=== PATIENT | male | born 1995 | race Caucasian/White ===

== ENCOUNTER 2020-11-11 12:10 | Emergency (ER) | payer SELFPAY ==
--- NOTE | 2020-11-11 14:32 | EDM.PDOC ---
ED HPI GENERAL MEDICAL PROBLEM - General Chief Complaint: Lower Extremity Injury/Pain Stated Complaint: RT CALF PAIN Time Seen by Provider: 11/11/20 12:50 Source of Information: Reports: Patient History Limitations: Reports: No Limitations - History of Present Illness INITIAL COMMENTS - FREE TEXT/NARRATIVE: Patient presented to the Ed because of rt calf pain. He travelleb by bus from [place] to [facility] for 3 days. There is no chest pain or dyspnea. right leg Pain Score (Numeric/FACES): 5 - Related Data Allergies Allergy/AdvReac Type Severity Reaction Status Date / Time Unable to Assess Allergy Unverified 11/11/20 12:53 Home Meds: Home Meds Cyclobenzaprine [Flexeril] 10 mg PO Q8H PRN #15 tab 11/11/20 [Rx] Ibuprofen 800 mg PO Q8H #30 tablet 11/11/20 [Rx] Review of Systems - Review of Systems Review Of Systems: See Below Constitutional: Reports: No Symptoms Ears: Reports: No Symptoms Nose: Reports: No Symptoms Mouth/Throat: Reports: No Symptoms Respiratory: Reports: No Symptoms Cardiovascular: Reports: No Symptoms GI/Abdominal: Reports: No Symptoms Genitourinary: Reports: No Symptoms Musculoskeletal: Reports: Leg Pain Skin: Reports: No Symptoms Neurological: Reports: No Symptoms Psychiatric: Reports: No Symptoms ED EXAM, GENERAL - Physical Exam Exam: See Below Exam Limited By: No Limitations General Appearance: Alert, No Apparent Distress Eye Exam: Bilateral Eye: PERRL Ears: Normal External Exam, Normal Canal Nose: Normal Inspection, Normal Mucosa Throat/Mouth: Normal Inspection, Normal Lips Head: Atraumatic, Normocephalic Neck: Normal Inspection, Supple, Non-Tender, Full Range of Motion Respiratory/Chest: No Respiratory Distress, Lungs Clear, Normal Breath Sounds Cardiovascular: Normal Peripheral Pulses, Regular Rate, Rhythm, No Edema, No Gallop GI/Abdominal: Normal Bowel Sounds, Soft, Non-Tender, No Organomegaly Back Exam: Normal Inspection, Full Range of Motion Extremities: Normal Inspection, Normal Range of Motion, Non-Tender Neurological: Alert, Oriented, CN II-XII Intact, Normal Cognition Course - Vital Signs Text/Narrative:: [id number] RLE US-see result Last Recorded V/S: Last Vital Signs Temp 36.7 C 11/11/20 15:00 Pulse 82 11/11/20 15:00 Resp 15 11/11/20 15:00 BP 133/71 11/11/20 15:00 Pulse Ox 100 11/11/20 15:00 - Orders/Labs/Meds Labs: Laboratory Tests 11/11/20 Range/Units 13:20 D-Dimer, Quantitative 1.20 H (0.0-0.59) mg/LFEU Departure - Departure Time of Disposition: 15:00 Disposition: Home, Self-Care 01 Condition: Good Clinical Impression: Muscle pain, Leg pain, right - Discharge Information Prescriptions: Cyclobenzaprine [Flexeril] 10 mg PO Q8H PRN #15 tab PRN Reason: Spasms Ibuprofen 800 mg PO Q8H #30 tablet Instructions: Musculoskeletal Pain Referrals: PCP,Not In Area [Primary Care Provider] - Forms: ED Department Discharge Additional Instructions: Please read discharge instructions on mescle pain Apply ice or heat whichever makes the pain feel better Take ibuprofen 800 mg, tylenol 1000 mg, flexeriil 10 mg every 8 hours as needed for pain and spasm Follow up as needed Sepsis Event Note (ED) - Evaluation Sepsis Screening Result: No Definite Risk
--- NOTE | 2020-11-11 16:16 | US ---
DUPLEX ULTRASOUND RIGHT LOWER EXTREMITY VEINS INDICATION: Right leg swelling, question DVT. DUPLEX ULTRASOUND, LOWER EXTREMITY VEINS: Utilizing 2-D real time, duplex Doppler spectral analysis and color flow imaging, examination of the lower extremity veins, including the common femoral vein, proximal greater saphenous vein, proximal deep femoral vein, proximal femoral vein, mid femoral vein, distal femoral vein, popliteal vein, posterior tibial vein, anterior tibial vein, and peroneal vein, revealed no evidence of deep venous thrombosis or obstruction. Compression views showed no abnormal lack of compression to suggest thrombosis. No evidence of incompetence of the valves was identified. IMPRESSION: Duplex ultrasound, lower extremity veins, shows no evidence of deep venous thrombosis or incompetence. MTDD
== END 2020-11-11 15:00 | disposition home or self-care (01) ==
LOC: FB.ED 12:10
DX: M79.661 Pain in right lower leg (principal)
CPT/HCPCS: 36415; 85379; 93971-RT; 99283; 99284-25

== ENCOUNTER 2021-01-23 00:01 | Emergency (ER) | payer BC, MEDICAID ==
--- NOTE | 2021-01-23 11:45 | ER ---
DATE SEEN: 01/23/2021 CHIEF COMPLAINT: Upper respiratory symptoms. HISTORY OF PRESENT ILLNESS: This is a 25-year-old male with a week history of cough, runny nose, vomiting, and diarrhea. No fever. Mild chest pain on the right side. ALLERGIES: No known allergies. MEDICATIONS: Reviewed. PHYSICAL EXAMINATION: GENERAL: Not in distress. VITAL SIGNS: Afebrile. ENT: Normal. CHEST: Clear. CARDIOVASCULAR: Normal. MENTAL STATUS: Alert. IMPRESSION: 1. Upper respiratory infection. 2. Diarrhea. TREATMENT: Supportive therapy and reassurance. /[id number] JESSY/THANH
== END 2021-01-23 01:45 | disposition home or self-care (01) ==
LOC: FB.ED 00:01
DX: J06.9 Acute upper respiratory infection, unspecified (principal); R19.7 Diarrhea, unspecified; Z20.822 Contact with and (suspected) exposure to COVID-19
CPT/HCPCS: 99284; U0002

== ENCOUNTER 2021-02-01 19:38 | Emergency (ER) | payer MEDICAID ==
--- NOTE | 2021-02-01 20:03 | EDM.PDOC ---
ED HPI GENERAL MEDICAL PROBLEM - General Chief Complaint: Gastrointestinal Problem Stated Complaint: HEMROIDS Time Seen by Provider: 02/01/21 20:01 Source of Information: Reports: Patient History Limitations: Reports: No Limitations - History of Present Illness INITIAL COMMENTS - FREE TEXT/NARRATIVE: Fer complains of BRBPR. This happened once tonight. Accompanied by some vomiti ng.No pain - Related Data Allergies Allergy/AdvReac Type Severity Reaction Status Date / Time Unable to Assess Allergy Unverified 11/11/20 12:53 Home Meds: Home Meds Ibuprofen 800 mg PO Q8H #30 tablet 11/11/20 [Rx] Past Medical History HEENT History: Reports: Allergic Rhinitis, Impaired Vision Respiratory History: Reports: Asthma, Bronchitis, Recurrent Musculoskeletal History: Reports: Fracture, Other (See Below) Other Musculoskeletal History: Right ankle fracture surgery. Psychiatric History: Reports: Anxiety, Depression - Past Surgical History GI Surgical History: Reports: Cholecystectomy Social & Family History - Family History Family Medical History: No Pertinent Family History - Tobacco Use Tobacco Use Status *Q: Unknown Ever Used Tobacco - Caffeine Use Caffeine Use: Reports: Coffee, Soda - Recreational Drug Use Recreational Drug Use: No ED ROS GENERAL - Review of Systems Review Of Systems: Comprehensive ROS is negative, except as noted in HPI. ED EXAM, GI/ABD - Physical Exam Exam: See Below Exam Limited By: No Limitations General Appearance: Alert Rectal (Males) Exam: Normal Exam Course - Vital Signs Last Recorded V/S: Last Vital Signs Temp 98.0 F 02/01/21 19:52 Pulse 88 02/01/21 19:52 Resp 18 02/01/21 19:52 BP 122/48 L 02/01/21 19:52 Pulse Ox 100 02/01/21 19:52 Departure - Departure Time of Disposition: 01:37 Disposition: Home, Self-Care 01 Condition: Good Clinical Impression: BRBPR (bright red blood per rectum) - Discharge Information Instructions: Hemorrhoids, [id number] Referrals: PCP,None [Primary Care Provider] - Forms: ED Department Discharge Additional Instructions: Establish a primary care provider. Follow up on Wednesday or Wednesday a clinic. Sepsis Event Note (ED) - Evaluation Sepsis Screening Result: No Definite Risk - Focused Exam Vital Signs: Vital Signs Temp Pulse Resp BP Pulse Ox 02/01/21 19:52 98.0 F 88 18 122/48 L 100 - Problem List & Annotations (1) BRBPR (bright red blood per rectum) SNOMED Code(s): 66362009 Code(s): K62.5 - HEMORRHAGE OF ANUS AND RECTUM Status: Acute - Problem List Review Problem List Initiated/Reviewed/Updated: Yes - Assessment/Plan Plan: Reassurance. Follow up with PCP
== END 2021-02-01 20:14 | disposition home or self-care (01) ==
LOC: FB.ED 19:38
DX: K62.5 Hemorrhage of anus and rectum (principal); Z90.49 Acquired absence of other specified parts of digestive tract
CPT/HCPCS: 99283

== ENCOUNTER 2021-02-14 13:40 | Emergency (ER) | payer MEDICAID ==
--- NOTE | 2021-02-14 15:07 | EDM.PDOC ---
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, that he saw a neurologist in [place] for nerve pain and was given a med that made him tired, no meds now has pain that radiates from R wrist on volar aspect to elbow - Related Data Allergies Allergy/AdvReac Type Severity Reaction Status Date / Time No Known Allergies Allergy Verified 02/14/21 14:43 Home Meds: Home Meds Ibuprofen 800 mg PO Q8H #30 tablet 11/11/20 [Rx] Past Medical History HEENT History: Reports: Allergic Rhinitis, Impaired Vision Respiratory History: Reports: Asthma, Bronchitis, Recurrent Musculoskeletal History: Reports: Fracture, Other (See Below) Other Musculoskeletal History: Right ankle fracture surgery. Psychiatric History: Reports: Anxiety, Depression - Past Surgical History GI Surgical History: Reports: Cholecystectomy Social & Family History - Family History Family Medical History: No Pertinent Family History - Caffeine Use Caffeine Use: Reports: Coffee, Soda Review of Systems - Review of Systems Review Of Systems: See Below Constitutional: Reports: No Symptoms Eyes: Reports: No Symptoms Ears: Reports: No Symptoms Nose: Reports: No Symptoms Mouth/Throat: Reports: No Symptoms Respiratory: Reports: No Symptoms Cardiovascular: Reports: No Symptoms GI/Abdominal: Reports: No Symptoms Genitourinary: Reports: No Symptoms Musculoskeletal: Reports: Other (R wrist/elbow pain) Skin: Reports: No Symptoms Neurological: Reports: Other (tingling and numb R middle and ring fingers) Psychiatric: Reports: No Symptoms ED EXAM, GENERAL - Physical Exam Exam: See Below Exam Limited By: No Limitations General Appearance: Alert, WD/WN, No Apparent Distress Nose: Normal Inspection Throat/Mouth: Normal Inspection Head: Atraumatic Neck: Normal Inspection Respiratory/Chest: Lungs Clear Cardiovascular: Regular Rate, Rhythm Neurological: Other (2+ radial pulses, Tinel and Phalen are neg, questionable dec'd light touch in R 4th and 5th fingers, 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 with pain limiting R, elbow is not tender at collateral ligaments and ulnar nerve) Course - Vital Signs Last Recorded V/S: Last Vital Signs Temp 35.8 C L 02/14/21 13:45 Pulse 88 02/14/21 13:45 Resp 16 02/14/21 13:45 BP 112/70 02/14/21 13:45 Pulse Ox 100 02/14/21 13:45 - Re-Assessments/Exams Free Text/Narrative Re-Assessment/Exam: 02/14/21 15:09 pt with typical overuse syndrome c/w ligament sprain, CTS or nerve inflammation seems doubtful it is not clear what he is referring to when he 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 for which he is getting no treatment will have f/u with PCP Departure - Departure Time of Disposition: 15:02 Disposition: Home, Self-Care 01 Condition: Good Clinical Impression: Sprain of right wrist, Overuse syndrome - Discharge Information *PRESCRIPTION DRUG MONITORING PROGRAM REVIEWED*: Not Applicable *COPY OF PRESCRIPTION DRUG MONITORING REPORT IN PATIENT SERG: Not Applicable Instructions: Wrist Sprain, Adult, Carpal Tunnel Syndrome Forms: ED Department Discharge, ED Return to Work/School Form Additional Instructions: You have inflammation of the right wrist from a sprain of the ligaments. You may also be developing early symptoms of carpal tunnel syndrome, which is inflammation of the nerves (not the ligaments). To rest the ligaments and nerves, use a wrist splint at work and home for the next 1-2 weeks. For pain, use ice for 10 minutes 4 times a day. For inflammation, take ibuprofen 200 mg 4 tabs and acetaminophen 325 mg 2 tabs 3 times a day for 1 week, longer if needed. See a primary care provider in 4-5 days for further evaluation and recommendations. No work today and tomorrow. Sepsis Event Note (ED) - Evaluation Sepsis Screening Result: No Definite Risk - Focused Exam Vital Signs: Vital Signs Temp Pulse Resp BP Pulse Ox 02/14/21 13:45 35.8 C L 88 16 112/70 100
== END 2021-02-14 15:10 | disposition home or self-care (01) ==
LOC: FB.ED 13:40
DX: S63.501A Unspecified sprain of right wrist, initial encounter (principal); X58.XXXA Exposure to other specified factors, initial encounter
CPT/HCPCS: 99282; 99283

== ENCOUNTER 2021-06-14 14:28 | Emergency (ER) | payer MEDICAID ==
[2021-06-14] MEDS: Ketorolac 30 MG/ML SDV IM ONE (15:25)
[2021-06-14] MEDS: Ondansetron 4 MG Tab.DIS PO ONE (15:26)
--- NOTE | 2021-06-14 15:27 | EDM.PDOC ---
ED HPI GENERAL MEDICAL PROBLEM - General Chief Complaint: Abdominal Pain Stated Complaint: SIDE PAIN, VOMITING Time Seen by Provider: 06/14/21 15:15 Source of Information: Reports: Patient, RN. Denies: Old Records History Limitations: Reports: No Limitations - History of Present Illness INITIAL COMMENTS - FREE TEXT/NARRATIVE: 25 yo [employer] employee presents with intermittent L flank pain since last night. Had had some nausea/vomiting when the pain is severe. Thinks movement worsens pain. Recalls no injury. Doesn't have a pHx of kidney stones. No fever. No self tx. Onset: Unknown/Unsure Onset Date: 06/13/21 Duration: Hour(s):, Waxing/Waning Location: Reports: Back (L flank area). Denies: Abdomen Quality: Reports: Pressure Severity: Severe (when at its worst) Improves with: Reports: Other (unsure) Worsens with: Reports: Movement Context: Reports: Other (See HPI) Associated Symptoms: Reports: Nausea/Vomiting. Denies: Fever/Chills Treatments DROP CLIPPER: Reports: Other (see below) (none) Left Flank Pain Score (Numeric/FACES): 5 - Related Data Allergies Allergy/AdvReac Type Severity Reaction Status Date / Time No Known Allergies Allergy Verified 02/14/21 14:43 Home Meds: Home Meds Ibuprofen 800 mg PO Q8H #30 tablet 11/11/20 [Rx] Past Medical History HEENT History: Reports: Allergic Rhinitis, Impaired Vision Respiratory History: Reports: Asthma, Bronchitis, Recurrent Musculoskeletal History: Reports: Fracture, Other (See Below) Other Musculoskeletal History: Right ankle fracture surgery. Psychiatric History: Reports: Anxiety, Depression - Past Surgical History GI Surgical History: Reports: Cholecystectomy Social & Family History - Family History Family Medical History: No Pertinent Family History - Caffeine Use Caffeine Use: Reports: Coffee, Soda ED ROS GENERAL - Review of Systems Review Of Systems: See Below Constitutional: Reports: No Symptoms HEENT: Reports: No Symptoms Respiratory: Reports: No Symptoms Cardiovascular: Reports: No Symptoms GI/Abdominal: Reports: Nausea, Vomiting. Denies: Constipation, Diarrhea, Hematemesis Musculoskeletal: Reports: Back Pain (L flank area) Skin: Reports: No Symptoms. Denies: Rash Neurological: Reports: No Symptoms ED EXAM,LOWER BACK PAIN/INJURY - Physical Exam Exam: See Below Exam Limited By: No Limitations General Appearance: Alert, WD/WN, No Apparent Distress, Obese Eye Exam: Bilateral Eye: Normal Inspection Ears: Normal External Exam, Normal Canal, Hearing Grossly Normal Nose: Normal Inspection, No Blood Throat/Mouth: Normal Inspection, Normal Lips, Normal Voice, No Airway Compromise Head: Atraumatic, Normocephalic Neck: Normal Inspection Respiratory/Chest: No Respiratory Distress, Lungs Clear, Normal Breath Sounds, No Accessory Muscle Use Cardiovascular: Regular Rate, Rhythm GI/Abdominal: Soft, Non-Tender, No Distention. No: Distended, Tender Extremities: Normal Inspection, Normal Range of Motion, Non-Tender, No Pedal Edema Neurological: Alert, Normal Mood/Affect, CN II-XII Intact, No Motor/Sensory Deficits, Oriented x 3 Psychiatric: Normal Affect, Normal Mood Skin Exam: Warm, Dry, Intact, Normal Color, No Rash Course - Vital Signs Last Recorded V/S: Last Vital Signs Temp 36.1 C 06/14/21 14:40 Pulse 142 H 06/14/21 14:40 Resp 20 06/14/21 14:40 BP 131/66 06/14/21 14:40 Pulse Ox 97 06/14/21 14:40 - Orders/Labs/Meds Labs: Laboratory Tests 06/14/21 Range/Units 15:17 Urine Color Yellow (YELLOW) Urine Appearance Clear (CLEAR) Urine pH 5.0 (5.0-6.5) Ur Specific [place] 1.020 (1.010-1.025) Urine Protein Negative (NEGATIVE) mg/dL Urine Glucose (UA) Normal (NORMAL) mg/dL Urine Ketones Negative (NEGATIVE) mg/dL Urine Occult Blood Negative (NEGATIVE) Urine Nitrite Negative (NEGATIVE) Urine Bilirubin Negative (NEGATIVE) Urine Urobilinogen Normal (NEGATIVE) mg/dL Ur Leukocyte Esterase Negative (NEGATIVE) Urine RBC Not seen (0-5) Urine WBC 0-5 (0-5) Ur Squamous Epith Cells Few H (NS,R,O) Meds: Medications Discontinued Medications Generic Name Dose Route Start Last Admin Trade Name Freq PRN Reason Stop Dose Admin Ketorolac Tromethamine 30 mg 06/14/21 15:17 06/14/21 15:25 Ketorolac 30 Mg/Ml Sdv IM 06/14/21 15:18 30 mg ONETIME ONE Administration Ondansetron HCl 4 mg 06/14/21 15:17 06/14/21 15:26 Ondansetron 4 Mg Tab.Dis PO 06/14/21 15:18 4 mg ONETIME ONE Administration - Re-Assessments/Exams Free Text/Narrative Re-Assessment/Exam: 06/14/21 16:11 Pain gone after Toradol Departure - Departure Time of Disposition: 16:11 Disposition: Home, Self-Care 01 Condition: Good Clinical Impression: Back pain Qualifiers: Back pain location: thoracic back pain Chronicity: acute Back pain laterality: left Qualified Code(s): M54.6 - Pain in thoracic spine - Discharge Information *PRESCRIPTION DRUG MONITORING PROGRAM REVIEWED*: Not Applicable *COPY OF PRESCRIPTION DRUG MONITORING REPORT IN PATIENT SERG: Not Applicable Instructions: Acute Back Pain, Adult Referrals: Roxie Pelaez MD [Primary Care Provider] - Forms: ED Department Discharge Additional Instructions: Take ibuprofen 600 mg every 6 hrs with food for pain relief. Avoid heavy lifting today and tomorrow. Recheck with your provider if not improving by midweek. Sepsis Event Note (ED) - Evaluation Sepsis Screening Result: No Definite Risk - Focused Exam Vital Signs: Vital Signs Temp Pulse Resp BP Pulse Ox 06/14/21 14:40 36.1 C 142 H 20 131/66 97
== END 2021-06-14 16:20 | disposition home or self-care (01) ==
LOC: FB.ED 14:28
DX: M54.6 Pain in thoracic spine (principal); J45.909 Unspecified asthma, uncomplicated
CPT/HCPCS: 81001; 96372; 99284; A9270; J1885

== ENCOUNTER 2021-11-17 14:33 | Emergency (ER) | payer MEDICAID ==
[2021-11-17 15:59] LABS: CORONAVIRUS COVID-19 NAA NEGATIVE (NEGATIVE)
== END 2021-11-17 15:19 | disposition home or self-care (01) ==
LOC: FB.ED 14:33
DX: J06.9 Acute upper respiratory infection, unspecified (principal); E66.9 Obesity, unspecified; Z68.41 Body mass index [BMI] 40.0-44.9, adult; Z88.1 Allergy status to other antibiotic agents; Z79.82 Long term (current) use of aspirin; Z79.4 Long term (current) use of insulin; Z20.822 Contact with and (suspected) exposure to COVID-19
CPT/HCPCS: 0241U; 36415; 85025; 99283

== ENCOUNTER 2022-04-04 16:25 | Emergency (ER) | payer MEDICAID ==
[2022-04-04] MEDS: Ketorolac 30 MG/ML SDV IM STA (16:59)
[2022-04-04] MEDS: tiZANidine 4 MG Tab PO STA (17:00)
== END 2022-04-04 17:43 | disposition home or self-care (01) ==
LOC: FB.ED 16:25
DX: R07.89 Other chest pain (principal); I10 Essential (primary) hypertension; E78.00 Pure hypercholesterolemia, unspecified; E11.9 Type 2 diabetes mellitus without complications; Z79.4 Long term (current) use of insulin; Z79.82 Long term (current) use of aspirin; Z79.899 Other long term (current) drug therapy; Z72.0 Tobacco use
CPT/HCPCS: 96372; 99283; A9270; J1885

== ENCOUNTER 2023-01-14 19:13 | Emergency (ER) | payer BC, MEDICAID ==
[2023-01-14] MEDS ORDERED: Codeine/guaiFENesin 100mg-10 MG/5 ML Soln 118 ML Bottle PO ONE (19:14)
== END 2023-01-14 20:22 | disposition home or self-care (01) ==
LOC: FB.ED 19:13
DX: J06.9 Acute upper respiratory infection, unspecified (principal); E11.9 Type 2 diabetes mellitus without complications; E78.00 Pure hypercholesterolemia, unspecified; I10 Essential (primary) hypertension; E66.9 Obesity, unspecified; Z68.45 Body mass index [BMI] 70 or greater, adult; Z79.84 Long term (current) use of oral hypoglycemic drugs; Z88.1 Allergy status to other antibiotic agents; Z88.8 Allergy status to other drugs, medicaments and biological substances; Z79.82 Long term (current) use of aspirin; Z79.899 Other long term (current) drug therapy
CPT/HCPCS: 99283; A9270-GY

== ENCOUNTER 2023-06-25 06:43 | Emergency (ER) | payer MEDICAID, BC ==
[2023-06-25] MEDS ORDERED: Acetaminophen 500 MG Tab PO ONE (07:40)
[2023-06-25] MEDS ORDERED: Ibuprofen 800 MG Tab PO ONE (07:40)
== END 2023-06-25 08:35 | disposition home or self-care (01) ==
LOC: FB.ED 06:43
DX: R07.81 Pleurodynia (principal); F17.210 Nicotine dependence, cigarettes, uncomplicated; I10 Essential (primary) hypertension; J45.909 Unspecified asthma, uncomplicated; E78.00 Pure hypercholesterolemia, unspecified; E11.9 Type 2 diabetes mellitus without complications; E66.9 Obesity, unspecified; Z68.39 Body mass index [BMI] 39.0-39.9, adult; Z79.4 Long term (current) use of insulin; Z79.899 Other long term (current) drug therapy; Z79.82 Long term (current) use of aspirin; Z88.1 Allergy status to other antibiotic agents; Z88.8 Allergy status to other drugs, medicaments and biological substances
CPT/HCPCS: 71101-RT; 99282; 99283; A9270-GY

== ENCOUNTER 2024-01-29 11:17 | Emergency (ER) | payer BC, MEDICAID ==
[2024-01-29] MEDS ORDERED: Sodium Chloride 0.9% 10 ML Syringe FLUSH PRN (11:29)
[2024-01-29] MEDS ORDERED: Naloxone 0.4 MG/ML SDV IVPUSH PRN (11:30)
[2024-01-29 11:55] LABS: BASOPHILS PERCENT AUTO 0.8 % (0.3-3.8); EOSINOPHILS ABSOLUTE AUTO 0.1 x10-3/uL (0.0-0.6); EOSINOPHILS PERCENT AUTO 2.1 % (0.1-6.8); HEMATOCRIT 48.5 % (38.3-50.1); HEMOGLOBIN 16.8 g/dL (12.9-17.7); LYMPHOCYTES ABSOLUTE AUTO 1.8 x10-3/uL (0.5-4.5); LYMPHOCYTES PERCENT AUTO 32.4 % (15.8-45.3); MEAN CORPUSCULAR HEMOGLOBIN 29.4 pg (27.0-33.3); MEAN CORPUSCULAR HGB CONC 34.7 g/dL (28.7-35.3); MEAN CORPUSCULAR VOLUME 84.8 fL (80.8-98.7); MEAN PLATELET VOLUME 8.8 fL (6.7-11.0); MONOCYTES ABSOLUTE AUTO 0.3 x10-3/uL (0.0-1.2); MONOCYTES PERCENT AUTO 5.9 % (5.5-15.2); NEUTROPHILS ABSOLUTE AUTO 3.3 x10-3/uL (1.7-6.9); NEUTROPHILS PERCENT AUTO 58.8 % (40.3-71.8); PLATELET COUNT,PLT 191 x10(3)uL (117-477); RED BLOOD CELL COUNT 5.73 x10(6)uL (3.90-5.90); RED CELL DISTRIBUTION WIDTH 13.5 % (12.4-15.0); WHITE BLOOD CELL COUNT,WBC 5.6 x10-3/uL (3.2-10.1)
[2024-01-29 11:56] LABS: BLOOD UREA NITROGEN,BUN 13 mg/dL (7-18); BUN/CREATININE RATIO 16.3 (9-20); CALCIUM 9.4 mg/dL (8.6-10.2); CARBON DIOXIDE,CO2 28 mmol/L (21-32); CHLORIDE,CL 100 mmol/L (100-110); CREATININE 0.8 mg/dL (0.70-1.30); EST CRCL DRUG DOSING (CG) 144.48 mL/min; ESTIMATED GFR 125 mL/min (>60); GLUCOSE RANDOM 302 mg/dL (80-116); SODIUM,NA 138 mmol/L (135-145)
[2024-01-29] MEDS: Ondansetron 4 MG/2 ML SDV IVPUSH ONE (11:57)
[2024-01-29] MEDS: Sodium Chloride 0.9% 1,000 ML IV SCH (12:00)
[2024-01-29 12:07] LABS: A/G RATIO 1.1; ALBUMIN 4.1 g/dL (3.5-5.2); ALKALINE PHOSPHATASE 73 IU/L (56-112); AMYLASE 25 U/L (25-115); ASPARTATE AMNIOTRANSFERASE,AST 100 IU/L (5-25); BILIRUBIN TOTAL 1.2 mg/dL (0.1-1.3)
[2024-01-29 12:09] LABS: ALANINE AMINOTRANSFERASE,ALT 176 U/L (12-36)
[2024-01-29] MEDS: Pantoprazole 40 MG Vial IVPUSH ONE (12:18)
[2024-01-29] MEDS: Morphine 4 MG/ML VIAL IVPUSH ONE (12:20)
[2024-01-29] MEDS: Iopamidol 755 Mg/ML 100 ML Bottle IV ONE (12:36)
[2024-01-29 13:05] LABS: BILIRUBIN,URINE NEGATIVE (NEGATIVE); GLUCOSE,URINE >1000 mg/dL (NORMAL); KETONES,URINE NEGATIVE (NEGATIVE); LEUKOCYTE ESTERASE,URINE NEGATIVE (NEGATIVE); NITRITE,URINE NEGATIVE (NEGATIVE); OCCULT BLOOD,URINE NEGATIVE (NEGATIVE); PROTEIN,URINE NEGATIVE (NEGATIVE); UROBILINOGEN,URINE NORMAL (NEGATIVE)
[2024-01-29 13:12] LABS: APPEARANCE,URINE CLEAR (CLEAR); BACTERIA,URINE RARE (NS); COLOR,URINE YELLOW (YELLOW); RBC,URINE NOT SEEN (0-5); SQUAMOUS EPITHELIAL CELLS,UR RARE (NS,R,O); WBC,URINE 0-5 (0-5)
[2024-01-29 13:14] LABS: CORONAVIRUS COVID-19 NAA NEGATIVE (NEGATIVE); INFLUENZA A NAA NEGATIVE (NEGATIVE); INFLUENZA B NAA NEGATIVE (NEGATIVE); RESPIRATORY SYNCYTIAL VIR NAA NEGATIVE (NEGATIVE)
== END 2024-01-29 14:15 | disposition home or self-care (01) ==
LOC: FB.ED 11:17
DX: K76.0 Fatty (change of) liver, not elsewhere classified (principal); E11.9 Type 2 diabetes mellitus without complications; I10 Essential (primary) hypertension; F17.210 Nicotine dependence, cigarettes, uncomplicated; Z88.8 Allergy status to other drugs, medicaments and biological substances
CPT/HCPCS: 0241U; 36415; 74177; 80053; 81001; 82150; 83690; 85025; 96361; 96374; 96375; 99284; 99284-25; C9113; J2270; J2405; J7030; Q9967